=== PATIENT | female | born 1940 | race Caucasian/White ===

== ENCOUNTER 2017-11-21 12:51 | Emergency (ER) | payer MEDICARE ==
[~2017-11-21 12:51] MED LIST: BACT800T5 PO; BUSP10TA PO; CITA40TA4 PO; FENO160T PO; GABA600T PO; GEMF600T PO; GLIP5TAB8 PO; HALO1TAB PO; LISI-515 PO; METF500T PO; PRAV80TA2 PO; RANI150T PO; SERO200T PO; VERA120T3 PO
[2017-11-21 12:53] VITALS: BP 92/62; PULSE 101; RESP 16; TEMP 98.1; O2SAT 89
--- NOTE | 2017-11-21 14:14 | RADRPT ---
EXAM DATE/TIME: 11/21/2017 13:34 [place] COMPARISON: No previous studies available for comparison. INDICATIONS : Bilateral leg pain. MEDICAL HISTORY : Hypertension. Hypercholesterolemia. Diabetes. SURGICAL HISTORY : Hysterectomy. Carpal tunnel surgery. Right knee surgery. ENCOUNTER: Initial ACUITY: 1 day PAIN SCORE: 2/10 LOCATION: Bilateral legs. TECHNIQUE: Venous ultrasound of the left and right leg was performed from the inguinal ligament to the proximal calf. Real-time, color Doppler and spectral tracing, compression and augmentation techniques were us ed. FINDINGS: RIGHT LEG: There is normal compressibility of the deep venous system from the inguinal region to the proximal ca lf. No echogenic clot is seen in the lumen of the common femoral, femoral, popliteal, and posterior tibial veins. There is a normal response of the venous system to proximal and distal augmentation an d respiration. LEFT LEG: There is normal compressibility of the deep venous system from the inguinal region to the proximal ca lf. No echogenic clot is seen in the lumen of the common femoral, femoral, popliteal, and posterior tibial veins. There is a normal response of the venous system to proximal and distal augmentation an d respiration. CONCLUSION: 1. No sonographic evidence for lower extremity DVT. Jeff Cedeño MD on November 21, 2017 at 14:12 Board Certified Radiologist. This report was verified electronically.
--- NOTE | 2017-11-21 14:25 | PD ---
HPI Chief Complaint: Pain: Acute or Chronic Time Seen by Provider: 14:14 Travel History International Travel<30 days: No Contact w/Intl Traveler<30days: No Traveled to known affect area: No History of Present Illness HPI 77-year-old female presents emergency department with bilateral lower extremity pain. She was seen earlier by Dr. Harrison and sent here for rule out DVT due to her lower extremity discomfort. Ultrasound was ordered in triage. Patient has history of lower extremity pain secondary to neuropathy currently being treated by Dr. Harrison. Patient is soon to start Lyrica for her lower extremity discomfort. She was previously on gabapentin but was taken off secondary to side effects. She has no other acute issues today. She is allergic to Celebrex , codeine, ibuprofen, and prednisone. PFSH Past Medical History Anxiety: Yes Depression: Yes Cardiovascular Problems: Yes (HTN) High Cholesterol: Yes Diabetes: Yes Diminished Hearing: No Hypertension: Yes Past Surgical History Hysterectomy: Yes Tonsillectomy: Yes Other Surgery: Yes (interstem, carpall tunnel) Social History Alcohol Use: No Tobacco Use: No Substance Use: No Allergies-Medications (Allergen,Severity, Reaction): Coded Allergies: celecoxib (Verified Allergy, Severe, 11/21/17) codeine (Verified Allergy, Severe, 11/21/17) ibuprofen (Verified Allergy, Severe, 11/21/17) prednisone (Verified Allergy, Severe, 11/21/17) Reported Meds & Prescriptions Reported Meds & Active Scripts Active Bactrim DS (Sulfamethoxazole-Trimethoprim) 800-160 Mg Tab 1 Tab PO BID Reported Haloperidol 1 Mg Tab 1 Mg PO BID Fenofibrate 160 Mg Tab 160 Mg PO DAILY Buspirone (Buspirone HCl) 10 Mg Tab 10 Mg PO TID Citalopram (Citalopram Hydrobromide) 40 Mg Tab 50 Mg PO DAILY Verapamil (Verapamil HCl) 120 Mg Tab 180 Mg PO Q8H Pravastatin 80 Mg Tab 80 Mg PO DAILY Ranitidine (Ranitidine HCl) 150 Mg Tab 150 Mg PO BID Gabapentin 600 Mg Tab 600 Mg PO HS Gemfibrozil 600 Mg Tab 600 Mg PO BIDAC Take 30 minutes prior to breakfast and dinner. Lisinopril 20 Mg Tab 20 Mg PO DAILY Seroquel (Quetiapine Fumarate) 200 Mg Tab 200 Mg PO DAILY Glipizide 5 Mg Tab 2.5 Mg PO DAILY Take 30 minutes before a meal Metformin (Metformin HCl) 500 Mg Tab 500 Mg PO BIDPC Review of Systems Except as stated in HPI: all other systems reviewed are Neg General / Constitutional: No: Fever Eyes: No: Visual changes HENT: No: Headaches Cardiovascular: No: Chest Pain or Discomfort Respiratory: No: Shortness of Breath Gastrointestinal: No: Abdominal Pain Genitourinary: No: Dysuria Musculoskeletal: No: Pain Skin: No Rash Neurologic: No: Weakness Psychiatric: No: Depression Endocrine: No: Polydipsia Hematologic/Lymphatic: No: Easy Bruising Physical Exam Narrative GENERAL: Moderately obese patient in no acute distress. SKIN: Warm and dry. Normal color. Normal turgor. No signs of trauma. HEAD: Atraumatic. Normocephalic. EYES: Pupils equal and round. No scleral icterus. No injection or drainage. ENT: No nasal bleeding or discharge. Mucous membranes pink and moist. NECK: Trachea midline. Supple and nontender. CARDIOVASCULAR: Regular rate and rhythm. RESPIRATORY: No accessory muscle use. Clear to auscultation. Breath sounds equal bilaterally. GASTROINTESTINAL: Abdomen soft, non-tender, nondistended. Hepatic and splenic margins not palpable. MUSCULOSKELETAL: Extremities without clubbing, cyanosis, 2+ nonpitting bilateral edema. No obvious deformities. Range of motion is within normal limits. NEUROLOGICAL: Awake and alert. No obvious cranial nerve deficits. Motor grossly within normal limits. Five out of 5 muscle strength in the arms and legs. Normal speech. PSYCHIATRIC: Appropriate mood and affect; insight and judgment normal. Data Data Last Documented VS Vital Signs Date Time Temp Pulse Resp B/P (MAP) Pulse Ox O2 Delivery O2 Flow Rate FiO2 11/21/17 12:53 98.1 101 16 92/62 (72) 89 Orders Orders Us Leg Venous Doppler Bilat (11/21/17 ) [facility] Medical Decision Making Medical Screen Exam Complete: Yes Emergency Medical Condition: Yes Medical Record Reviewed: Yes Differential Diagnosis Lower extremity pain. Lower extremity neuropathy. Possible DVT Narrative Course Bilateral lower extremity DVT study is negative for acute process. Patient stable for discharge to follow-up with Dr. Harrison. Copy of the ultrasound study is given to the patient. Diagnosis Primary Impression: Lower extremity pain, bilateral Referrals: Primary Care Physician Patient Instructions: General Instructions, Paresthesia (ED) Additional Instructions: Bilateral lower extremity DVT study is negative for acute process. Patient stable for discharge to follow-up with Dr. Harrison. Copy of the ultrasound study is given to the patient. Med/Other Pt SpecificInfo: No Change to Meds Disposition: 01 DISCHARGE HOME Condition: Stable Dayne Krishnan Nov 21, 2017 14:25
== END 2017-11-21 14:51 | disposition home or self-care (01) ==
LOC: NEPD 12:51
DX: M79.605 Pain in left leg (principal); M79.604 Pain in right leg; E11.9 Type 2 diabetes mellitus without complications; E78.00 Pure hypercholesterolemia, unspecified; F32.9 Major depressive disorder, single episode, unspecified; F41.9 Anxiety disorder, unspecified; I10 Essential (primary) hypertension; Z79.84 Long term (current) use of oral hypoglycemic drugs
CPT/HCPCS: 93970; 99284

== ENCOUNTER 2018-03-21 09:33 | Inpatient (IN) ==
[2018-04-02] MEDS ORDERED: Aluminum/Magnesium/Simethacone Susp 30 ML UDC PO PRN (07:15)
[2018-04-02] MEDS ORDERED: ETANERCEPT 50 MG SQ SCH (07:30)
[2018-04-02] MEDS ORDERED: Dextrose 50% in Water 50 ML Vial IV.PUSH PRN (07:32)
[2018-04-02] MEDS: Metoprolol Tartrate 50 MG Tablet PO SCH ×2 (08:34→21:02)
[2018-04-02] MEDS: Famotidine 20 MG Tablet PO SCH ×2 (08:35→21:02)
[2018-04-02] MEDS: amLODIPine 10 MG Tablet PO SCH (08:37)
[2018-04-02] MEDS: Lisinopril 10 MG Tablet PO SCH (08:38)
[2018-04-02] MEDS: Acetaminophen 325 MG Tablet ONE ×2 (08:55→08:57)
[2018-04-02] MEDS: Acetaminophen 325 MG Tablet PO PRN ×2 (13:15→19:51)
[2018-04-02 14:46] LABS: Bacteria,Urine Rare /hpf; Bilirubin,Urine Negative (Negative); Clarity,Urine Hazy (Clear); Color,Urine Yellow (Yellw/Straw); Glucose,Urine (UA) Negative (Negative); Leukocyte Esterase,Urine Large (Negative); Mucus,Urine Few /lpf (Occasional); Nitrite,Urine Negative (Negative); Specific Gravity,Urine 1.005 (1.002-1.035); Squamous Epithelial Cell,Urine 2 /hpf (0-5)
--- NOTE | 2018-04-02 16:54 | P.PNPSY ---
Subjective Remarks: Patient was seen and case discussed with nursing. Patient remains quite psychotic. She becomes argumentative that there is a person named Sury with short red hair who owns the hospital and is thus controlling her diet. She later says that we are burning everyone. No ETO's needed. UA came back suggesting a UTI Mental Status Examination Appearance: Appropriate Consciousness: Alert Orientation: Person, Place Motor Activity: Normal gait Speech: Unremarkable Language: Adequate Fund of Knowledge: Inadequate Attention and Concentration: Adequate Memory: Impaired Mood: Irritable Affect: Irritable Thought Process & Associations: Disorganized Thought Content: Bizarre thinking Hallucination Type: None Delusion Type: Bizarre Suicidal Ideation: No Suicidal Plan: No Suicidal Intention: No Homicidal Ideation: No Homicidal Plan: No Homicidal Intention: No Insight: Poor Judgment: Poor Assessment and Plan - Assessment (1) Brief psychotic disorder Code(s): F23 - Brief psychotic disorder Status: Acute - Plan Plan: Estimated LOS: [] days Continue current treatment plan. Medical consult Justification for Continued Inpatient Stay: Patient would decompensate in a less restrictive setting
[2018-04-02] MEDS ORDERED: Gabapentin 300 MG Capsule PO SCH (21:00)
[2018-04-03] MEDS: Acetaminophen 325 MG Tablet PO PRN ×2 (01:26→06:10)
[2018-04-03] MEDS: Lisinopril 10 MG Tablet PO SCH (08:14)
[2018-04-03] MEDS: amLODIPine 10 MG Tablet PO SCH (08:14)
[2018-04-03] MEDS: Famotidine 20 MG Tablet PO SCH (08:16)
[2018-04-03] MEDS: Metoprolol Tartrate 50 MG Tablet PO SCH (09:58)
[2018-04-03] MEDS ORDERED: Nitrofurantoin Monohydrate-Macrocrystal 100 MG Capsule PO SCH (10:00)
--- NOTE | 2018-04-03 10:51 | P.PN ---
Subjective Interval history: Reconsult for UTI. Patient is seen and examined in the day room and appears to be in no acute distress. Reports she is feeling well, would like to go home. She reports she had dysuria yesterday, none today. Denies any suprapubic pain, fevers, chills, N/V/D, cough or SOB. Physical Exam Vital signs: Vital Signs 04/02/18 13:20 04/02/18 18:17 04/02/18 21:25 Temperature 36.5 C Pulse Rate 63 71 Respiratory Rate 18 16 Blood Pressure 135/64 133/63 Pulse Oximetry 95 04/02/18 21:43 04/03/18 06:06 04/03/18 06:21 Temperature 36.3 C L Pulse Rate 73 64 Respiratory Rate 16 16 17 Blood Pressure 157/71 H Pulse Oximetry 95 04/03/18 06:42 04/03/18 09:50 Temperature 36.3 C L Pulse Rate 64 Respiratory Rate 15 Blood Pressure 157/75 H Pulse Oximetry 95 Intake & Output 04/02/18 04/03/18 04/03/18 18:59 06:59 18:59 Intake Total 1020 / 1020 340 / 340 Balance 1020 / 1020 340 / 340 Intake: Oral 1020 / 1020 240 / 240 Oral Supplement 100 / 100 Other: # Voids 3 2 Narrative: GENERAL: This is a well-nourished, well-developed patient, in no apparent distress. SKIN: Warm and dry. NECK: Trachea midline. CARDIOVASCULAR: Regular rate and rhythm without murmurs, gallops, or rubs. RESPIRATORY: Clear to auscultation. Breath sounds equal bilaterally. No wheezes , rales, or rhonchi. GASTROINTESTINAL: Abdomen soft, non-tender, nondistended. Bowel Sounds normoactive x4. MUSCULOSKELETAL: Extremities without clubbing, cyanosis, or edema. No calf tenderness. Noted left knee surgical scar, no swelling noted. NEUROLOGICAL: Awake and alert with confusion. Moves all extremities. Normal speech. Results - Labs CBC & Chem 7: 03/21/18 09:55 03/23/18 07:12 Laboratory Results - last 24 hr 04/02/18 14:15 Urine Color Yellow Urine Clarity Hazy H Urine pH 7.0 Ur Specific [place] 1.005 Urine Protein Negative Urine Glucose (UA) Negative Urine Ketones Negative Urine Occult Blood Small H Urine Nitrate Negative Urine Bilirubin Negative Urine Urobilinogen Less than 2 Ur Leukocyte Esterase Large H Urine RBC Less than 1 Urine WBC Urine WBC Clumps Few H Ur Squamous Epith Cells 2 Urine Bacteria Rare H Urine Mucus Few H Micro UA Comment Culture indicated Urine Culture Comments Culture indicated Assessment and Plan - Plan Patient is a 77 YO female was brought to the ED under a Allen Act. The pt has reportedly been hallucinating and agitated. Hallucination, psychosis -Management per psychiatry. HTN, improved -Continue aspirin 81 mg, metoprolol 50 mg twice daily, Norvasc increased to 10 mg daily -Clonidine as needed. -BP improved, continue current medications. UTI UA growing group D enterococcus-->Enterococcus Faecalis -Continue PO Cipro, to complete course 03/29 -Pyridium 3 days, previously discussed with patient potential side effect. - UA collected on 04/02 once again growing Group D Enterococcus (review of [place] [facility] Enterococcus Faecalis 100 susceptibles to Macrobid) - Await final sensitivity results. DM Glucose well controlled -Hemoglobin A1c 5.2. -Continue home PO Glucophage. Episode was DC'd secondary to episode of hypoglycemia -accu checks D/C BS stable -DC home with only Glucophage. Hip and knee pain -Patient reports this pain is controlled with Tylenol, continue as needed for pain. DVT prop ambulatory Will await final urine culture results incase antibiotic needs to be adjusted. Discussed with patient and nurse.
--- NOTE | 2018-04-03 22:11 | P.DSPSY ---
Psychiatry Discharge Summary Inpatient Psychiatric care?: Yes Advance Directives: No Mental Health Advance Directive: No Health Care Proxy: Yes - Admission Admission Date: March 22, 2018 09:24 - Admission Diagnosis (1) Brief psychotic disorder Code(s): F23 - Brief psychotic disorder Brief History: Patient is a 77-year-old white female who comes here under a Allen act by the [facility]'s office dated 03/21/18 at 0845 hours. That document reviewed. Essentially states according to medical noon his daughter she has stopped taking her psych medications for the past week since then she has been very agitated hearing voices and having conversations with the preliminary refused voluntary medical evaluation I personally observed Natasha having a conversation with Alicja Hand" all driving to the hospital. Patient seen screen in the ED urine toxicology negative blood alcohol level negative. At the present time patient sitting quietly in the dayroom nurse Loree present throughout session. She is an alert white female appearing her stated age basically oriented to place time and situation though there is some diffuse confusion. There is some confusion of whether she lives with her son with her daughter. Though she does acknowledge that they are all "hostages" with no being elevated by the neighbors. These neighbors appear to be talking to the patient in the threatening demanding manner. Patient does acknowledge past psychiatric history first being hospitalized at about 27 years of age most recently within the past year though she is vague as to where she was hospitalized what medication she was taking. He does acknowledge auditory hallucinations and those situations also. She denies alcohol or drug use related to this. She denies any physical or sexual abuse. She denies mental health issues with her family. Staff as noted patient talking to herself while in the day room also. At the present time patient does not meet criteria for further psychiatric hospitalization of the Allen act I will do first opinion request second opinion. I feel she does have capacity to sign for medications. Thus we will allow her to do that. We will have a hospitalist consult will S. We will attempt to reach patient's daughter to get further information concerning this nice lady. Hopeless be fairly short stay we can adjust her medications and refer back to her family with follow-up in the community. Patient states she may have been saying a clinician through [employer] act in the recent past. Patient states she was born and collaboratively came here as about an 10-year-old initially settling up on the [facility]. She states she has 3 children 2 boys and one girl jamar being the oldest patient states she has some of the conflictual relationship with her. Tobacco Use In Past 30 Days: No How Often Do You Have a Drink Containing Alcohol: Never Hospital Course: Patient is a 77 y/o woman, who arrived under Allen Act by [facility] office stating as per patients daughter, patient has stopped taking her psych medications for the past week , has been very agitated, hearing voices and having conversations with self which patient was admitted to the inpatient psychiatry unit for further evaluation and management. Patient was kept on citalopram 40mg PO daily, Haldol 2mg TID and quetiapine 200mg PO HS which she tolerated well with no notable adverse drug reactions. Patient was noted to improved mood and stabilization of mood and was no longer noted to have internal stimuli nor perceptual disturbances. Patient was observed by staff to not have had any behavioral disturbances, not having had any suicidal or homicidal ideation and achieved stable mood throughout admission and was noted to participate with staff adequately. Upon discharge patient stated that she was feeling good, reported well with the treatment, denied any SI, HI, perceptual disturbances or delusions. Weighing the acute, chronic, and protective factors and based on the available evidence, I time study observer to a reasonable degree of medical certainty that the patient is at low imminent risk of harm to self or others from a mental illness as defined under the Allen act and his level of function is adequate as observed on the unit for planned level of outpatient care. She was counseled regarding warning signs for need to return to the psychiatric emergency room as part of a general safety plan. Patient advised to call 911 or go nearest ED in case of emergency. Patient agreed with plan. - Discharge Discharge Date: 04/03/18 - Discharge Diagnosis (1) Brief psychotic disorder Code(s): F23 - Brief psychotic disorder Status: Acute Discharge Disposition: [facility] Facility - Discharge Instructions Discharge Diet: Heart Healthy Diet Activities You Can Perform: Weight Bearing As Tolerat - Discharge Time > 30 minutes Mental Status Examination Appearance: Appropriate Consciousness: Alert Orientation: Person, Place Motor Activity: Normal gait Speech: Unremarkable Language: Adequate Fund of Knowledge: Inadequate Attention and Concentration: Adequate Mood: Appropriate Affect: Appropriate Thought Process & Associations: Intact, Linear Thought Content: Appropriate Hallucination Type: None Delusion Type: None Suicidal Ideation: No Suicidal Plan: No Suicidal Intention: No Homicidal Ideation: No Homicidal Plan: No Homicidal Intention: No Insight: Fair Judgment: Impulsive Discharge/Advance Care Plan - Results Vital Signs: Last Vital Signs Temp 97.4 F L 04/03/18 06:42 Pulse 64 04/03/18 06:42 Resp 15 04/03/18 06:42 BP 157/75 H 04/03/18 09:50 Pulse Ox 95 04/03/18 06:42 Lab Results: Abnormal Lab Results 04/02/18 14:15 Urine Color Yellow Urine Clarity Hazy H Urine pH 7.0 Ur Specific [place] 1.005 Urine Protein Negative Urine Glucose (UA) Negative Urine Ketones Negative Urine Occult Blood Small H Urine Nitrate Negative Urine Bilirubin Negative Urine Urobilinogen Less than 2 Ur Leukocyte Esterase Large H Urine RBC Less than 1 Urine WBC Urine WBC Clumps Few H Ur Squamous Epith Cells 2 Urine Bacteria Rare H Urine Mucus Few H Micro UA Comment Culture indicated Urine Culture Comments Culture indicated Laboratory Results Hemoglobin A1c 5.2 % (4.3-6.0) 03/23/18 07:12 Triglycerides 141 MG/DL (42-150) 03/23/18 07:12 Cholesterol 144 MG/DL (120-200) 03/23/18 07:12 HDL Cholesterol 25.6 MG/DL (40.0-60.0) L 03/23/18 07:12 Urine Culture Comments Culture indicated 04/02/18 14:15 Summary of Procedures: none Pending Results: None - Medications Number of antipsychotic medications at discharge: 2 (Patient required adjuct antipsychotic to manage psychosis) - Discharge Care Plan Goals to Promote Your Health: * To prevent worsening of your condition and complications * To maintain your health at the optimal level Directions to Meet Your Goals: Take your medications as prescribed Follow your dietary instruction Follow activity as directed Keep your appointments as scheduled Take your immunizations and boosters as scheduled If your symptoms worsen call your PCP, if no PCP go to Urgent Care Center or Emergency Room For 24/ questions related to your inpatient stay or results of tests pending at discharge, please contact Dr. Jaswinder Hansen MD at Smoking is Dangerous to Your Health. Avoid second hand smoking
[2018-04-04 12:48] VITALS: BP 157/75; PULSE 64; RESP 15; TEMP 97.4; O2SAT 95
== END 2018-04-03 04:20 ==
LOC: H250 03-22 09:24
PROVIDERS: ADMIT Psychiatry & Neurology Psychiatry; ATTEND Psychiatry & Neurology Psychiatry